=== PATIENT | female | born 1960 | race Caucasian/White ===

== ENCOUNTER 2019-02-08 08:41 | Observation (INO) | payer BC ==
[~2019-02-08] VITALS: Ht 165.1 cm; Wt 65.9 kg
[2019-02-08 09:27] LABS: BASOPHILS # (AUTO) 0.1 X10'3 (0-0.2); BASOPHILS % (AUTO) 1.4 % (0-1); EOSINOPHILS # (AUTO) 0.2 X10'3 (0-0.9); EOSINOPHILS % (AUTO) 2.2 % (0-6); HEMATOCRIT 41.4 % (35.0-45.0); HEMOGLOBIN 14.4 g/dl (12.0-16.0); LYMPHOCYTES # (AUTO) 3.1 X10'3 (1.1-4.8); LYMPHOCYTES % (AUTO) 29.7 % (21-51); MEAN CORPUSCULAR HEMOGLOBIN 32.2 PG (27.0-31.0); MEAN CORPUSCULAR HGB CONC 34.7 g/dL (33.0-36.5); MEAN CORPUSCULAR VOLUME 92.6 FL (78-98); MEAN PLATELET VOLUME 8.8 FL (7.4-10.4); MONOCYTES # (AUTO) 0.5 X10'3 (0-0.9); MONOCYTES % (AUTO) 4.3 % (2-12); NEUTROPHILS # (AUTO) 6.5 X10'3 (1.8-7.7); NEUTROPHILS % (AUTO) 62.4 % (42-75); PLATELET COUNT 290 X10'3 (140-440); RED BLOOD COUNT 4.47 X10'6 (4.20-5.60); RED CELL DISTRIBUTION WIDTH 12.7 % (11.5-14.5); WHITE BLOOD COUNT 10.4 X10'3 (4.5-11.0)
[2019-02-08 09:40] LABS: ALANINE AMINOTRANSFERASE 18 U/L (12-78); ALBUMIN 3.7 G/DL (3.4-5.0); ALBUMIN/GLOBULIN RATIO 1.2 (1.1-1.5); ALKALINE PHOSPHATASE 76 IU/L (46-116); ANION GAP 6 (8-16); ASPARTATE AMINO TRANSFERASE 14 U/L (10-37); BILIRUBIN,TOTAL 0.2 MG/DL (0.1-1.0); BLOOD UREA NITROGEN 13 MG/DL (7-18); BUN/CREATININE RATIO 13.4 (6.6-38.0); CHLORIDE 108 MMOL/L (99-107); CREATININE 0.97 MG/DL (0.40-0.90); GLUCOSE 100 MG/DL (70-104); POTASSIUM 4.3 MMOL/L (3.5-5.1); SODIUM 142 MMOL/L (135-145); TOTAL CARBON DIOXIDE 28.1 MMOL/L (24-32); TOTAL PROTEIN 6.7 G/DL (6.4-8.2); eGFR 59 ML/MIN
[2019-02-08] MEDS ORDERED: ESTR1TAB19 PO (13:15)
[2019-02-08] MEDS ORDERED: ESOM20CA PO (13:15)
[2019-02-08] MEDS ORDERED: ATOR20TA66 PO (13:15)
[2019-02-08] MEDS ORDERED: ALPR0.5T8 PO (13:15)
[2019-02-08] MEDS ORDERED: ALPRAZolam 0.5mg tablet PO PRN (13:50)
[2019-02-08] MEDS ORDERED: magnesium 4gm in 100ml NS 100 ML IV PRN (13:55)
[2019-02-08] MEDS ORDERED: potassium Cl 20 mEq SR tablet PO PRN ×2 (13:55)
[2019-02-08] MEDS ORDERED: nitroGLYCERIN 0.4mg SUBLingual tab SL PRN (13:55)
[2019-02-08] MEDS ORDERED: ipratropium/albuterol 3ml nebule NEB PRN (13:55)
[2019-02-08] MEDS ORDERED: metoprolol tartrate 1mg/ml inj IV PRN (13:55)
[2019-02-08] MEDS ORDERED: HYDROcodone/acetaminophen 10/325mg tab PO PRN (13:55)
[2019-02-08] MEDS ORDERED: regadenoson 0.4mg/5ml syringe IV ONE (13:55)
[2019-02-08] MEDS ORDERED: aminophylline 250mg/10ml inj. IV PRN (13:55)
[2019-02-08] MEDS ORDERED: potassium CL 10mEq/100ml bag 100 ML IV PRN ×2 (13:55)
[2019-02-08] MEDS ORDERED: acetaminophen 325mg tablet PO PRN (13:55)
[2019-02-08] MEDS ORDERED: magnesium hydroxide 30ml (MOM) UD suspension PO PRN (13:55)
[2019-02-08] MEDS ORDERED: magnesium Cl slow-release 64mg tablet PO PRN (13:55)
[2019-02-08] MEDS ORDERED: mag hydrox/Alum hydrox/simeth 30ml oral suspension PO PRN (13:55)
[2019-02-08] MEDS ORDERED: magnesium 2GM in 50ml NS 50 ML IV PRN (13:55)
[2019-02-08] MEDS ORDERED: HYDROcodone/acetaminophen 5mg/325mg tablet PO PRN (13:55)
[2019-02-08] MEDS ORDERED: ondansetron/PF 4mg/2ml inj IV PRN (13:55)
--- NOTE | 2019-02-08 15:19 | NUR ---
Received report from BRENT Kendrick in ED. Will await patient arrival to the ACCE unit.
--- NOTE | 2019-02-08 15:20 | NUR ---
Received call from the ED that the patient would finish an ECHO before coming to the [facility]E unit.
--- NOTE | 2019-02-08 15:50 | NUR ---
Patient has arrive to the ACCE unit. Patient is alert and oriented x4. Patient is ad kayleigh. Patient vitals are stable and she has no c/o chest pain. Assessment completed and assumed care of this patient.
[2019-02-08 16:00] VITALS: BP 115/63
[2019-02-08 18:00] VITALS: BP 113/68
--- NOTE | 2019-02-08 18:05 | NUR ---
Patient in room [facility] 313. I have received report from BRENT Anderson and had the opportunity to ask questions and assume patient care.
--- NOTE | 2019-02-08 18:15 | NUR ---
Problems reprioritized. Patient report given, questions answered & plan of care reviewed with BRENT Diez.
[2019-02-08] MEDS ORDERED: K and/or MAG REPLACEMENT MC SCH (20:00)
[2019-02-08] MEDS: pantoprazole 40mg Tablet.DR PO SCH (20:56)
[2019-02-08] MEDS ORDERED: atorvastatin 20mg tablet PO SCH (21:00)
[2019-02-08 22:00] VITALS: BP 114/56
[2019-02-09] VITALS (9 sets, daily range): BP systolic 110–125; BP diastolic 54–63
--- NOTE | 2019-02-09 06:26 | NUR ---
Problems reprioritized. Patient report given, questions answered & plan of care reviewed with Yesi RN.
[2019-02-09 07:04] LABS: ALANINE AMINOTRANSFERASE 17 U/L (12-78); ALBUMIN 3.5 G/DL (3.4-5.0); ALBUMIN/GLOBULIN RATIO 1.2 (1.1-1.5); ALKALINE PHOSPHATASE 79 IU/L (46-116); ANION GAP 11 (8-16); BILIRUBIN,TOTAL 0.3 MG/DL (0.1-1.0); BLOOD UREA NITROGEN 16 MG/DL (7-18); BUN/CREATININE RATIO 16.8 (6.6-38.0); CALCIUM 9.1 MG/DL (8.5-10.1); CHLORIDE 106 MMOL/L (99-107); CHOL/HDL RATIO 2.4 (0.00-4.99); CHOLESTEROL 153 MG/DL (0-200); CREATININE 0.95 MG/DL (0.40-0.90); GLUCOSE 95 MG/DL (70-104); HDL CHOLESTEROL 64 MG/DL (35-60); LDL CHOLESTEROL 75 MG/DL (50-100); MAGNESIUM 2.1 MG/DL (1.5-2.4); SODIUM 138 MMOL/L (135-145); TOTAL CARBON DIOXIDE 20.8 MMOL/L (24-32); TOTAL PROTEIN 6.5 G/DL (6.4-8.2); TRIGLYCERIDES 98 MG/DL (20-135); eGFR 61 ML/MIN
[2019-02-09 07:07] LABS: ASPARTATE AMINO TRANSFERASE 22 U/L (10-37); POTASSIUM 4.7 MMOL/L (3.5-5.1)
[2019-02-09] MEDS: pantoprazole 40mg Tablet.DR PO SCH (07:08)
[2019-02-09] MEDS ORDERED: enoxaparin 40mg/0.4ml syringe SQ SCH (08:00)
[2019-02-09 08:54] LABS: BASOPHILS # (AUTO) 0.1 X10'3 (0-0.2); BASOPHILS % (AUTO) 1.1 % (0-1); EOSINOPHILS # (AUTO) 0.3 X10'3 (0-0.9); EOSINOPHILS % (AUTO) 2.6 % (0-6); HEMATOCRIT 40.6 % (35.0-45.0); LYMPHOCYTES # (AUTO) 3.1 X10'3 (1.1-4.8); MEAN CORPUSCULAR HEMOGLOBIN 31.7 PG (27.0-31.0); MEAN CORPUSCULAR HGB CONC 34.6 g/dL (33.0-36.5); MEAN CORPUSCULAR VOLUME 91.7 FL (78-98); MEAN PLATELET VOLUME 8.7 FL (7.4-10.4); MONOCYTES # (AUTO) 0.5 X10'3 (0-0.9); MONOCYTES % (AUTO) 4.6 % (2-12); NEUTROPHILS # (AUTO) 6.6 X10'3 (1.8-7.7); NEUTROPHILS % (AUTO) 62.7 % (42-75); PLATELET COUNT 278 X10'3 (140-440); RED BLOOD COUNT 4.42 X10'6 (4.20-5.60); RED CELL DISTRIBUTION WIDTH 12.6 % (11.5-14.5); WHITE BLOOD COUNT 10.5 X10'3 (4.5-11.0)
[2019-02-09] MEDS ORDERED: pneumococcal 23-VAL P-sac vacc 25 mcg/0.5ml vial IMVAC ONE (10:00)
--- NOTE | 2019-02-09 14:25 | NUR ---
DISCHARGE INSTRUCTIONS , BOTH VERBAL AND WRITTEN GIVEN, PATIENT STATES" UNDERSTANDING OF INSTRUCTIONS." DC'D HOME WITH DISCHARGE INSTRUCTIONS, AND ALL BELONGINGS. Addendum: 02/09/19 at 1456 by Ness Faust RN Amended: Links added.
== END 2019-02-09 14:35 | disposition home or self-care (01) ==
LOC: ER 08:41 → ED HOLD 14:20 → MED 3N 16:15 → CMPBEDREQ 20:01
PROVIDERS: ADMIT Family Medicine; ATTEND Family Medicine
DX: R07.89 Other chest pain (principal); R00.1 Bradycardia, unspecified; R11.0 Nausea; F17.210 Nicotine dependence, cigarettes, uncomplicated; F41.9 Anxiety disorder, unspecified; Z90.49 Acquired absence of other specified parts of digestive tract; Z88.5 Allergy status to narcotic agent; Z79.899 Other long term (current) drug therapy; Z90.711 Acquired absence of uterus with remaining cervical stump
CPT/HCPCS: 36415; 71045; 78452; 80053; 80061; 83735; 84484; 85025; 87081; 93005; 93017; 93306; 94760; 96372; 99284; A9500; G0378; J2785; J1650